=== PATIENT | male | born 1975 | race Caucasian/White ===

== ENCOUNTER 2019-09-08 22:24 | Emergency (ER) | payer OTHER ==
[2019-09-08 23:00] VITALS: BP 162/101
[2019-09-08] MEDS ORDERED: AUGMENTIN 875 MG PO ONE (23:01)
[2019-09-08] MEDS ORDERED: ISENTRESS PO ONE (23:03)
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
[2019-09-09] MEDS ORDERED: ZOFRAN ODT ONE (00:16)
[2019-09-09 00:28] LABS: Basophils # (Auto) 0.1 K/mm3 (0.0-0.1); Basophils % (Auto) 0.6 % (0.0-1.8); Eosinophils # (Auto) 0.1 K/mm3 (0.0-0.4); Eosinophils % (Auto) 0.6 % (0.0-4.3); Hematocrit 47.2 % (35.5-45.6); Lymphocytes # (Auto) 2.2 K/mm3 (1.2-5.4); Lymphocytes % (Auto) 22.2 % (13.4-35.0); Mean Corpuscular HGB Conc 34 % (32-34); Mean Corpuscular Volume 88 fl (84-94); Monocytes # (Auto) 0.7 K/mm3 (0.0-0.8); Platelet Count 230 K/mm3 (140-440); Red Blood Count 5.36 M/mm3 (3.65-5.03); Red Cell Distribution Width 13.8 % (13.2-15.2)
[2019-09-09 00:42] LABS: Alanine Aminotransferase 59 units/L (7-56); Albumin 4.9 g/dL (3.9-5); BUN/Creatinine Ratio 12; Blood Urea Nitrogen 14 mg/dL (9-20); Calcium 9.9 mg/dL (8.4-10.2); Hemolysis Index 5
[2019-09-09 00:52] LABS: Hepatitis B Surface Antigen Non-Reactive (Negative); Hepatitis C Virus Antibody Non-Reactive (NonReactive)
[2019-09-09] MEDS ORDERED: EMTRIVA PO SCH (10:00)
[2019-09-09] MEDS ORDERED: VIREAD PO SCH ×2 (10:00)
[2019-09-09] MEDS ORDERED: EMTRIVA 200 MG, VIREAD 300 MG PO ONE (23:03)
== END 2019-09-09 | disposition home or self-care (01) ==
LOC: ED 22:24
DX: S51.851A Open bite of right forearm, initial encounter (principal); I10 Essential (primary) hypertension; E78.00 Pure hypercholesterolemia, unspecified; Z79.899 Other long term (current) drug therapy; Z21 Asymptomatic human immunodeficiency virus [HIV] infection status; W50.3XXA Accidental bite by another person, initial encounter; Y93.89 Activity, other specified; Y92.89 Other specified places as the place of occurrence of the external cause; Y99.8 Other external cause status
CPT/HCPCS: 36415; 80053; 80074; 85025; 86689; 87901; 99283; Q0162